=== PATIENT | female | born 1985 | race American Indian/Alaskan Native ===

== ENCOUNTER 2017-07-08 12:07 | Emergency (ER) | payer SELFPAY ==
[2017-07-08 12:19] VITALS: BP 138/71
== END 2017-07-08 12:30 | disposition left against medical advice (07) ==
LOC: ED 12:07
DX: R09.89 Other specified symptoms and signs involving the circulatory and respiratory systems (principal); R53.1 Weakness; Z53.21 Procedure and treatment not carried out due to patient leaving prior to being seen by health care provider

== ENCOUNTER 2019-08-27 22:33 | Emergency (ER) | payer SELFPAY ==
[2019-08-27 22:41] VITALS: BP 126/82
--- NOTE | 2019-08-28 01:01 | Emergency Department Report ---
ED ENT HPI - General Chief complaint: Dental/Oral Stated complaint: TOOTH PAIN, BLEEDING Time Seen by Provider: 08/28/19 00:50 Source: patient Mode of arrival: Ambulatory Limitations: No Limitations - History of Present Illness Initial comments: Patient is a 34-year-old female that presents emergency room with complaints of left upper tooth pain and tooth bleeding. Patient states she was eating a salad and he felt her tooth crack. Patient states the pain has improved. Patient states currently the pain is a 4 out of 10. Patient states bleeding has stopped. Patient states it was bleeding pretty heavily and she held pressure and the bleeding stopped. Patient states she has not seen a dentist for this. Patient states it happened 3 hours prior to arrival. Patient denies fever or chills. Patient denies swelling. Patient denies difficulty swallowing. Patient denies other complaints. MD complaint: tooth pain -: Sudden Location: tooth # Severity scale (0 -10): 4 Quality: stabbing Consistency: now resolved Improves with: pressure, rest Worsens with: movement Context-Epistaxis: other Context- Dental: history of dental caries, other Associated Symptoms: toothache. denies: fever, cough, gum swelling, pain with swallowing, sore throat, tinnitus, hearing loss, discharge from ear, rhinorrhea - Related Data Previous Rx's Medication Instructions Recorded Last Taken Type HYDROcodone/APAP 5-325 [[place] 1 each PO Q4HR PRN #30 tablet 04/05/16 Unknown Rx 5/325] Mupirocin [Bactroban 2%] 1 applic TP TID #15 tube 07/02/18 Unknown Rx cephALEXin [Keflex] 500 mg PO Q6HR #28 capsule 07/02/18 Unknown Rx Allergies Allergy/AdvReac Type Severity Reaction Status Date / Time No Known Allergies Allergy Unverified 03/28/16 09:16 ED Dental HPI - General Chief complaint: Dental/Oral Stated complaint: TOOTH PAIN, BLEEDING Time Seen by Provider: 08/28/19 00:56 Source: patient Mode of arrival: Ambulatory Limitations: No Limitations - Related Data Previous Rx's Medication Instructions Recorded Last Taken Type HYDROcodone/APAP 5-325 [[place] 1 each PO Q4HR PRN #30 tablet 04/05/16 Unknown Rx 5/325] Mupirocin [Bactroban 2%] 1 applic TP TID #15 tube 07/02/18 Unknown Rx cephALEXin [Keflex] 500 mg PO Q6HR #28 capsule 07/02/18 Unknown Rx Allergies Allergy/AdvReac Type Severity Reaction Status Date / Time No Known Allergies Allergy Unverified 03/28/16 09:16 ED Review of Systems ROS: Stated complaint: TOOTH PAIN, BLEEDING Other details as noted in HPI Constitutional: denies: chills, fever Eyes: denies: eye pain, eye discharge, vision change ENT: throat pain. denies: ear pain Respiratory: denies: cough, shortness of breath, wheezing Cardiovascular: denies: chest pain, palpitations Endocrine: no symptoms reported Gastrointestinal: denies: abdominal pain, nausea, diarrhea Genitourinary: denies: urgency, dysuria, discharge Musculoskeletal: denies: back pain, joint swelling, arthralgia Skin: denies: rash, lesions Neurological: denies: headache, weakness, paresthesias Psychiatric: denies: anxiety, depression Hematological/Lymphatic: denies: easy bleeding, easy bruising ED Past Medical Hx - Past Medical History Previous Medical History?: No Hx Hypertension: No Hx Heart Attack/AMI: No Hx Liver Disease: No Hx Sickle Cell Disease: No Hx Seizures: No Hx Asthma: No - Surgical History Past Surgical History?: Yes Additional Surgical History: abdomen sx. 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 - Family History Family history: no significant - Social History Smoking Status: Current Every Day Smoker Substance Use Type: Alcohol - Medications Home Medications: Home Medications Medication Instructions Recorded Confirmed Last Taken Type HYDROcodone/APAP 5-325 [[place] 1 each PO Q4HR PRN #30 tablet 04/05/16 Unknown Rx 5/325] Mupirocin [Bactroban 2%] 1 applic TP TID #15 tube 07/02/18 Unknown Rx cephALEXin [Keflex] 500 mg PO Q6HR #28 capsule 07/02/18 Unknown Rx ED Physical Exam - General Limitations: No Limitations General appearance: alert, in no apparent distress - Head Head exam: Present: atraumatic, normocephalic - Eye Eye exam: Present: normal appearance - ENT ENT exam: Present: mucous membranes moist, other (left upper tooth fracture. No gum swelling noted. No redness noted. No active bleeding noted.) - Neck Neck exam: Present: normal inspection - Respiratory Respiratory exam: Present: normal lung sounds bilaterally. Absent: respiratory distress - Cardiovascular Cardiovascular Exam: Present: regular rate, normal rhythm. Absent: systolic murmur, diastolic murmur, rubs, gallop - GI/Abdominal GI/Abdominal exam: Present: soft, normal bowel sounds - Extremities Exam Extremities exam: Present: normal inspection - Back Exam Back exam: Present: normal inspection - Neurological Exam Neurological exam: Present: alert, oriented X3 - Psychiatric Psychiatric exam: Present: normal affect, normal mood - Skin Skin exam: Present: warm, dry, intact, normal color. Absent: rash ED Course Vital Signs 08/27/19 22:39 Temperature 97.4 F L Pulse Rate 91 H Respiratory 12 Rate Blood Pressure 126/82 O2 Sat by Pulse 99 Oximetry - Reevaluation(s) Reevaluation #1: I discussed the patient condition. I discussed the findings patient. I discussed follow-up care patient. Patient given resources. Patient does not have emergent medical condition. 08/28/19 00:55 Reevaluation #2: Patient evaluated and appropriately screened. Patient does not present to the ER with an emergent medical condition. Patient does not require any further evaluation. Patient was referred to registration says she does not present with a emergency medical condition. 08/28/19 01:01 Critical care attestation.: If time is entered above; I have spent that time in minutes in the direct care of this critically ill patient, excluding procedure time. ED Disposition Clinical Impression: Tooth ache Tooth fracture Qualifiers: Encounter type: initial encounter Fracture type: closed Qualified Code(s): S02.5XXA - Fracture of tooth (traumatic), initial encounter for closed fracture Disposition: MED SCREENING EXAM-LEFT Is pt being admited?: No Does the pt Need Aspirin: No Condition: Stable Additional Instructions: Patient to follow-up with a dentist as soon as possible. Patient to follow primary care in 2-3 days. Patient states Tylenol or ibuprofen when necessary for pain. Patient to return to your condition worsens. Referrals: PRIMARY CARE, [Primary Care Provider] - 2-3 Days Time of Disposition: 01:32
== END 2019-08-28 01:38 | disposition left against medical advice (07) ==
LOC: ED 22:33
DX: K03.81 Cracked tooth (principal); K08.89 Other specified disorders of teeth and supporting structures; F17.200 Nicotine dependence, unspecified, uncomplicated; F10.10 Alcohol abuse, uncomplicated; Z79.899 Other long term (current) drug therapy